=== PATIENT | female | born 1970 | race Caucasian/White ===

== ENCOUNTER 2021-12-26 10:11 | Observation (INO) ==
[~2021-12-26 10:11] MED LIST: Buffered Lidocaine 1% SYRIN 1 ml INTRADERM ONE; Famotidine IV 10 MG/ML 2 ml VIAL (20 mg) IV ONE; Lactated Ringers 1000 ml BAG 1,000 ML IV SCH
[2021-12-26] MEDS ORDERED: Famotidine IV 10 MG/ML 2 ml VIAL (20 mg) ONE (10:16)
[2021-12-26] MEDS ORDERED: hydrALAZINE 20 mg/ml 1 ML Vial IV ONE (11:10)
[2021-12-26] MEDS: hydrALAZINE 20 mg/ml 1 ML Vial IV IV SLOW PU ONE ×2 (11:11→12:00)
[2021-12-26] MEDS ORDERED: hydrALAZINE 20 mg/ml 1 ML Vial IV IV SLOW PU ONE (12:00)
[2021-12-26] MEDS ORDERED: Midazolam 5 mg/5 ml VIAL 1 mg/ml 5 ml VIAL (5 mg) ONE (12:29)
[2021-12-26] MEDS ORDERED: Enalaprilat IV 1.25 mg/ml 2 ml VIAL (2.5 MG) ONE (13:29)
[2021-12-26] MEDS ORDERED: Ondansetron 4 mg VIAL 2 MG/ML 2 ml VIAL ONE (15:35)
[2021-12-26] MEDS ORDERED: Ondansetron 4 mg VIAL 2 MG/ML 2 ml VIAL IV PRN (15:36)
[2021-12-26] MEDS ORDERED: CLONAZEPAM 1 MG PO PRN (16:19)
[2021-12-26] MEDS: Ondansetron 4 mg VIAL 2 MG/ML 2 ml VIAL IV PRN (18:34)
[2021-12-26] MEDS ORDERED: Heparin 5000 UNITS/ML 1 mL VIAL SUBCUT ONE (19:00)
[2021-12-26 19:22] LABS: Hematocrit 43 % (35-47); Hemoglobin 14.4 g/dL (12.0-16.0); Mean Corpuscular HGB Conc 34 g/dL (31-36); Mean Corpuscular Hemoglobin 30 pg (27-31); Mean Corpuscular Volume 89 fL (80-97); Mean Platelet Volume 9.7 fL (7.4-10.4); Platelet Count 188 10^3/uL (150-450); Red Blood Count 4.77 10^6 /uL (3.70-4.87); Red Cell Distribution Width 14 % (10-15); White Blood Count 8.2 10^3/uL (3.5-10.8)
[2021-12-26 19:23] LABS: Calcium 9.3 mg/dL (8.6-10.3); Potassium 3.4 mmol/L (3.5-5.0); eGFR CKD-EPI 89.4 (>60)
[2021-12-26 19:39] LABS: TSH Ultra Thyroid Stim Horm 1.45 mcIU/mL (0.34-5.60)
[2021-12-26] MEDS: CMCS: Vilazodone 40 mg TAB (NF) PO SCH (21:41)
[2021-12-27] MEDS: Ondansetron 4 mg VIAL 2 MG/ML 2 ml VIAL IV PRN ×2 (08:36→19:59)
[2021-12-27] MEDS ORDERED: Labetalol IV 5 MG/ML 20 ml VIAL IV PUSH ONE ×3 (10:19→18:33)
[2021-12-27] MEDS: CMCS: Vilazodone 40 mg TAB (NF) PO SCH (10:51)
[2021-12-27] MEDS ORDERED: Ondansetron 4 mg VIAL 2 MG/ML 2 ml VIAL IV PRN (14:58)
[2021-12-27] MEDS ORDERED: fentaNYL 100 mcg/2 ml 50 MCG/ML VIAL IV PRN (14:58)
[2021-12-27] MEDS ORDERED: Acetaminophen IV 1 GM/100ML 100 ML IV PRN (14:58)
[2021-12-27] MEDS ORDERED: DiMENhydriNATE IV 50 mg/ml 1 ml VIAL IV PUSH PRN (14:58)
[2021-12-27] MEDS ORDERED: Naloxone 0.4 mg VIAL 0.4 mg/ml 1 ml VIAL IV PRN (14:58)
[2021-12-27] MEDS ORDERED: hydrALAZINE 20 mg/ml 1 ML Vial IV IV SLOW PU ONE (16:06)
[2021-12-27] MEDS ORDERED: hydrALAZINE 20 mg/ml 1 ML Vial IV ONE (16:06)
[2021-12-27] MEDS ORDERED: Labetalol IV 5 MG/ML 20 ml VIAL ONE (17:10)
[2021-12-28] MEDS: Ondansetron 4 mg VIAL 2 MG/ML 2 ml VIAL IV PRN (08:20)
[2021-12-28] MEDS: CMCS: Vilazodone 40 mg TAB (NF) PO SCH (08:24)
[2021-12-28] MEDS ORDERED: Potassium Chlor 20 meq TAB.ER PO ONE (15:09)
[2021-12-28 18:02] VITALS: BP 140/72
== END 2021-12-28 17:42 | disposition home or self-care (01) ==
LOC: MEDTELE 10:11 → OR 10:11 → SUATTDRO 18:04
PROVIDERS: ADMIT Internal Medicine; ATTEND Internal Medicine

== ENCOUNTER 2022-12-03 11:57 | Inpatient (IN) ==
[2022-12-03] MEDS ORDERED: Lactated Ringers 1000 ml BAG 1,000 ML IV ONE ×2 (12:28→12:46)
[2022-12-03 12:31] LABS: Albumin 4.2 g/dL (3.2-5.2); Calcium 9.8 mg/dL (8.6-10.3); Total Bilirubin 0.3 mg/dL (0.2-1.0)
[2022-12-03] MEDS ORDERED: Iodixanol (CONTRAST) 320 MG/ML 100 ML SDV IV ONE (12:33)
[2022-12-03 12:36] LABS: Potassium 6.1 mmol/L (3.5-5.0)
[2022-12-03 12:38] LABS: Albumin/Globulin Ratio 1.5 (1-3); Creatinine, Serum 3.81 mg/dL (0.51-0.95); Globulin 2.8 g/dL (2-4); HDL Cholesterol 42.8 mg/dL; eGFR CKD-EPI 13.4 (>60)
[2022-12-03 12:47] LABS: ABS Eosinophils 0.2 10^3/ul (0-0.6); ABS Lymphocytes 1.3 10^3/ul (1.0-4.8); ABS Monocytes 1.1 10^3/ul (0-0.8); ABS Neutrophils 5.7 10^3/ul (1.5-7.7); Eosinophil % 1.9 %; Hematocrit 32 % (35-47); Hemoglobin 10.4 g/dL (12.0-16.0); Lymphocyte % 15.7 %; Mean Corpuscular HGB Conc 33 g/dL (31-36); Mean Corpuscular Hemoglobin 31 pg (27-31); Mean Corpuscular Volume 93 fL (80-97); Mean Platelet Volume 10.3 fL (7.4-10.4); Platelet Count 199 10^3/uL (150-450); Red Blood Count 3.42 10^6 /uL (3.70-4.87); Red Cell Distribution Width 13 % (10-15); White Blood Count 8.3 10^3/uL (3.5-10.8)
[2022-12-03 13:11] LABS: Activated Partial Thrombo Time 28.8 seconds (26.0-38.0); INR 1.17 (0.88-1.18)
[2022-12-03 14:30] LABS: Urine Appearance Cloudy; Urine Bilirubin Negative (Negative); Urine Blood 3+ (Negative); Urine Color Yellow; Urine Glucose Negative (Negative); Urine Ketones Negative (Negative); Urine Nitrite Negative (Negative); Urine Protein Negative (Negative); Urine Specific Gravity 1.016 (1.002-1.030); Urine Urobilinogen Negative (Negative)
[2022-12-03 14:33] LABS: Urine Bacteria Absent (Absent); Urine Granular Casts Present (Absent); Urine Red Blood Cell Trace(0-2/hpf) (Absent); Urine Squamous Epithelial Cell Present (Absent); Urine White Blood Cell Trace(0-5/hpf) (Absent)
[2022-12-03 15:22] LABS: Calcium 9.6 mg/dL (8.6-10.3); Creatinine, Serum 3.21 mg/dL (0.51-0.95); eGFR CKD-EPI 16.5 (>60)
[2022-12-03 15:53] LABS: Potassium 6.5 mmol/L (3.5-5.0)
[2022-12-03] MEDS ORDERED: CALCIUM GLUCONATE 1GM/50ML NS 1 GM/50 ML BAG IV ONE (16:01)
[2022-12-03] MEDS ORDERED: Albuterol 2.5mg/3 ml (0.083%) NEB.SOLN INH ONE (16:09)
[2022-12-03] MEDS ORDERED: Dextrose 50% VIAL 50 ml IV ONE (16:11)
[2022-12-03] MEDS ORDERED: NS 0.9% 1000 ml BAG 1,000 ML IV ONE (16:15)
[2022-12-03] MEDS ORDERED: Albumin Human 5% 12.5 GM/250 ML BTL IV ONE (16:16)
[2022-12-03] MEDS ORDERED: Ondansetron 4 mg VIAL 2 MG/ML 2 ml VIAL IV PRN (16:49)
[2022-12-03] MEDS ORDERED: Dextrose 50% Syringe 50 ml 25 GM/50 ML SYRINGE IV PUSH ONE (17:00)
[2022-12-03] MEDS ORDERED: Furosemide 40 mg/4 ml IV VIAL IV ONE (18:08)
[2022-12-03] MEDS ORDERED: NS 0.9% 1000 ml BAG 1,000 ML IV SCH (18:15)
[2022-12-03] MEDS: Heparin 5000 UNITS/ML 1 mL VIAL SUBCUT SCH (19:55)
[2022-12-03 20:36] LABS: Calcium 9.7 mg/dL (8.6-10.3); Creatinine, Serum 2.5 mg/dL (0.51-0.95); eGFR CKD-EPI 22.3 (>60)
[2022-12-03 20:42] LABS: Potassium 5.4 mmol/L (3.5-5.0)
[2022-12-03] MEDS ORDERED: OLANZAPINE 15 MG PO SCH (21:00)
[2022-12-04 04:45] LABS: ABS Eosinophils 0.1 10^3/ul (0-0.6); ABS Lymphocytes 0.9 10^3/ul (1.0-4.8); ABS Monocytes 0.7 10^3/ul (0-0.8); ABS Neutrophils 3.6 10^3/ul (1.5-7.7); Eosinophil % 1.6 %; Hematocrit 23 % (35-47); Hemoglobin 7.8 g/dL (12.0-16.0); Lymphocyte % 16.7 %; Mean Corpuscular HGB Conc 34 g/dL (31-36); Mean Corpuscular Hemoglobin 30 pg (27-31); Mean Corpuscular Volume 90 fL (80-97); Mean Platelet Volume 10.8 fL (7.4-10.4); Platelet Count 152 10^3/uL (150-450); Red Blood Count 2.58 10^6 /uL (3.70-4.87); Red Cell Distribution Width 13 % (10-15); White Blood Count 5.4 10^3/uL (3.5-10.8)
[2022-12-04 05:00] LABS: Blood Urea Nitrogen 36 mg/dL (6-24); CO2 Carbon Dioxide 18 mmol/L (22-32); Calcium 7.6 mg/dL (8.6-10.3); Creatinine, Serum 1.78 mg/dL (0.51-0.95); Glucose 96 mg/dL (70-100); Potassium 4.4 mmol/L (3.5-5.0); Sodium 138 mmol/L (135-145); eGFR CKD-EPI 33.5 (>60)
[2022-12-04 05:06] LABS: Anion Gap 5 mmol/L (2-11); Chloride 115 mmol/L (101-111)
[2022-12-04 07:42] LABS: ALT 84 U/L (7-52); AST 101 U/L (13-39); Albumin 3.4 g/dL (3.2-5.2); Albumin/Globulin Ratio 1.8 (1-3); Alkaline Phosphatase 155 U/L (35-149); Globulin 1.9 g/dL (2-4); Total Protein 5.3 g/dL (6.4-8.9)
[2022-12-04 08:00] LABS: Creatine Kinase 3086 U/L (10-223)
[2022-12-04] MEDS ORDERED: CMCS: Vilazodone 40 mg TAB (NF) PO SCH (09:00)
[2022-12-04] MEDS: Heparin 5000 UNITS/ML 1 mL VIAL SUBCUT SCH ×2 (09:14→20:20)
[2022-12-04] MEDS ORDERED: Magnesium Sulfate IV 3 GM in NS 0.9% 100 ml BAG 100 ML IVPB ONE (09:20)
[2022-12-04] MEDS ORDERED: NS 0.9% 1000 ml BAG 1,000 ML IV SCH (09:45)
[2022-12-04] MEDS: CMCS:Vilazodone 40 mg TAB (NF) PO SCH (11:39)
[2022-12-04] MEDS: Lidocaine PATCH 5% PATCH TRANSDERM SCH (13:53)
[2022-12-04] MEDS ORDERED: Magnesium Sulfate 2 gm BAG 2 GM/50 ML BAG IVPB ONE (16:17)
[2022-12-05 06:22] LABS: Hematocrit 27 % (35-47); Hemoglobin 9.2 g/dL (12.0-16.0); Mean Corpuscular HGB Conc 34 g/dL (31-36); Mean Corpuscular Hemoglobin 31 pg (27-31); Mean Corpuscular Volume 90 fL (80-97); Mean Platelet Volume 10.1 fL (7.4-10.4); Platelet Count 176 10^3/uL (150-450); Red Blood Count 3.01 10^6 /uL (3.70-4.87); Red Cell Distribution Width 13 % (10-15); White Blood Count 5.2 10^3/uL (3.5-10.8)
[2022-12-05 06:42] LABS: Albumin 3.7 g/dL (3.2-5.2); Albumin/Globulin Ratio 1.8 (1-3); Calcium 8.6 mg/dL (8.6-10.3); Creatinine, Serum 1.59 mg/dL (0.51-0.95); Globulin 2.1 g/dL (2-4); Magnesium 2.3 mg/dL (1.9-2.7); Total Bilirubin 0.3 mg/dL (0.2-1.0); Total Protein 5.8 g/dL (6.4-8.9); eGFR CKD-EPI 38.4 (>60)
[2022-12-05 06:45] LABS: Potassium 5.3 mmol/L (3.5-5.0)
[2022-12-05] MEDS ORDERED: SODIUM ZIRCONIUM CYCLOSILICATE 5 GM PACKET PO SCH (09:00)
[2022-12-05] MEDS: Lidocaine PATCH 5% PATCH TRANSDERM SCH (09:21)
[2022-12-05] MEDS: Heparin 5000 UNITS/ML 1 mL VIAL SUBCUT SCH ×2 (09:21→22:08)
[2022-12-05 13:56] LABS: Hepatitis B Surface Ab Immune (Immune); Hepatitis C Antibody Negative (Negative)
[2022-12-05] MEDS: CMCS:Vilazodone 40 mg TAB (NF) PO SCH (16:43)
[2022-12-05 17:10] LABS: Calcium 8.9 mg/dL (8.6-10.3); Creatinine, Serum 1.44 mg/dL (0.51-0.95); eGFR CKD-EPI 43.2 (>60)
[2022-12-05 17:11] LABS: Potassium 5.5 mmol/L (3.5-5.0)
[2022-12-05 18:36] LABS: Hepatitis B Core IgM Nonreactive (Nonreactive)
[2022-12-05] MEDS ORDERED: SODIUM ZIRCONIUM CYCLOSILICATE 5 GM PACKET PO ONE ×2 (19:00→20:00)
[2022-12-05 23:54] LABS: Calcium 8.8 mg/dL (8.6-10.3); Creatinine, Serum 1.33 mg/dL (0.51-0.95); Potassium 4.6 mmol/L (3.5-5.0); eGFR CKD-EPI 47.5 (>60)
[2022-12-06 06:40] LABS: Hematocrit 27 % (35-47); Hemoglobin 9.4 g/dL (12.0-16.0); Mean Corpuscular HGB Conc 35 g/dL (31-36); Mean Corpuscular Hemoglobin 31 pg (27-31); Mean Corpuscular Volume 89 fL (80-97); Mean Platelet Volume 10.2 fL (7.4-10.4); Platelet Count 175 10^3/uL (150-450); Red Blood Count 3.01 10^6 /uL (3.70-4.87); Red Cell Distribution Width 13 % (10-15); White Blood Count 5.1 10^3/uL (3.5-10.8)
[2022-12-06 07:11] LABS: Calcium 8.9 mg/dL (8.6-10.3); Creatinine, Serum 1.43 mg/dL (0.51-0.95); eGFR CKD-EPI 43.6 (>60)
[2022-12-06 07:23] LABS: Potassium 5.1 mmol/L (3.5-5.0)
[2022-12-06 07:34] LABS: Folate 11.98 ng/mL (5.90-24.80)
[2022-12-06] MEDS: Heparin 5000 UNITS/ML 1 mL VIAL SUBCUT SCH (08:19)
[2022-12-06] MEDS: Lidocaine PATCH 5% PATCH TRANSDERM SCH (08:24)
[2022-12-06] MEDS ORDERED: SODIUM ZIRCONIUM CYCLOSILICATE 5 GM PACKET PO SCH (09:00)
[2022-12-06] MEDS ORDERED: NS 0.9% 1000 ml BAG 1,000 ML IV SCH (09:00)
[2022-12-06] MEDS: CMCS:Vilazodone 40 mg TAB (NF) PO SCH (09:40)
[2022-12-06 12:16] LABS: Ferritin 128.9 ng/mL (11-307)
[2022-12-06 15:06] LABS: Calcium 8.7 mg/dL (8.6-10.3); Creatinine, Serum 1.24 mg/dL (0.51-0.95); Potassium 4.9 mmol/L (3.5-5.0); eGFR CKD-EPI 51.7 (>60)
[2022-12-06 17:39] VITALS: BP 110/75
[2022-12-07 12:15] LABS: Hepatitis Be Antigen Negative (Negative)
== END 2022-12-06 18:21 | disposition home or self-care (01) | DRG 641 ==
LOC: ED 11:57 → SUATTDRO 16:43 → EDHOLD 16:43 → ICU 18:44 → MEDTELE 12-04 23:25
PROVIDERS: ADMIT Internal Medicine Critical Care Medicine; ATTEND Internal Medicine